=== PATIENT | female | born 1950 ===

== ENCOUNTER 2017-07-22 05:49 | Emergency (ER) | payer MEDICARE, OTHER ==
[~2017-07-22] VITALS: Ht 152.4 cm; Wt 61.8 kg
[2017-07-22 05:55] VITALS: Ht 152.4 cm; Wt 61.8 kg
--- NOTE | 2017-07-22 06:19 | RADRPT ---
PROCEDURE: CT Brain without contrast. CLINICAL INDICATION: Altered mental status TECHNIQUE: Axial images from the skull base through the vertex without IV contrast. Multiplanar r eformatted images were made. Images were reviewed on a PACS workstation. The CTDIvol is 45.01 mGy and the DLP is 720.23 mGycm. One or more of the following dose reduction techniques were used: auto mated exposure control, adjustment of the mA and/or kV according to patient size, or use of iterativ e reconstruction technique. DICOM images are available. COMPARISON: None. FINDINGS: The study is slightly limited by patient motion. There is mild cortical atrophy. Small 8 mm calcifie d lesion beneath the right frontal calvarium may represent a small meningioma. There is no definite evidence for acute territorial infarction or intracranial hemorrhage. No midline shift or extraaxial fluid collection is seen. Probable prior bilateral cataract surgery. The visualized paranasal sin uses and mastoids are clear.. IMPRESSION: No definite acute abnormality. Mild atrophy and possible small 8 mm calcified right frontal meningio ma. RPTAT: [facility] Physician Paul Date Time Electronically viewed and signed by Physician Paul on 07/22/2017 06:18 PEDRO LUIS/
--- NOTE | 2017-07-22 06:29 | RADRPT ---
PROCEDURE: XR Chest. CLINICAL INDICATION: Altered Mental Status TECHNIQUE: AP semiupright. COMPARISON: None. FINDINGS: The cardiomediastinal silhouette is normal in size. There are thoracic aortic atherosclerotic change s. The lungs are clear. No signs of pleural fluid or pneumothorax are seen. Degenerative changes of the left acromioclavicular joint are noted. IMPRESSION: 1. No evidence for active cardiopulmonary disease. 2. Thoracic aortic atherosclerosis. 3. Degenerative change of the left acromioclavicular joint. RPTAT: [facility] Physician Usha Date Time Electronically viewed and signed by Physician Usha on 07/22/2017 06:29 RR/
[2017-07-22 07:07] LABS: BASOPHILS % 0.3 % (0.0-2.0); EOSINOPHILS % 0.1 % (0.0-7.0); HEMATOCRIT 33.8 % (42.0-52.0); HEMOGLOBIN 11.2 g/dl (14.0-18.0); LYMPHOCYTES # 1.6 10^3/ul (0.8-2.9); LYMPHOCYTES % 15.5 % (15.0-51.0); MEAN CORPUSCULAR HEMOGLOBIN 29.2 pg (29.0-33.0); MEAN CORPUSCULAR HGB CONC 33.1 g/dl (32.0-37.0); MEAN CORPUSCULAR VOLUME 88.3 fl (82.0-101.0); MEAN PLATELET VOLUME 10.5 fl (7.4-10.4); MONOCYTE # 0.3 10^3/ul (0.3-0.9); MONOCYTES % 3.2 % (0.0-11.0); NEUTROPHIL # 8.3 10^3/ul (1.6-7.5); NEUTROPHILS % 80.6 % (39.0-77.0); PLATELET COUNT 239 10^3/UL (140-415); RED BLOOD COUNT 3.83 10^6/ul (4.70-6.10); RED CELL DISTRIBUTION WIDTH 13.2 % (11.5-14.5); WHITE BLOOD COUNT 10.3 10^3/ul (4.8-10.8)
[2017-07-22 07:11] LABS: ADD UMIC NO; UR ASCORBIC ACID 20 mg/dL (NEGATIVE); UR BILIRUBIN (Dip) NEGATIVE (NEGATIVE); UR BLOOD (Dip) NEGATIVE (NEGATIVE); UR CLARITY CLEAR (CLEAR); UR COLOR YELLOW (YELLOW); UR GLUCOSE (Dip) NEGATIVE (NEGATIVE); UR KETONES (Dip) NEGATIVE (NEGATIVE); UR LEUKOCYTE ESTERASE (Dip) NEGATIVE Leu/ul (NEGATIVE); UR NITRITE (Dip) NEGATIVE (NEGATIVE); UR SPECIFIC GRAVITY (Dip) 1.013 (1.003-1.030); UR TOTAL PROTEIN (Dip) NEGATIVE (NEGATIVE); UR UROBILINOGEN (Dip) NEGATIVE (NEGATIVE)
[2017-07-22 07:37] LABS: BENZODIAZEPINES Negative (NEGATIVE)
[2017-07-22 07:39] LABS: BARBITURATES Negative (NEGATIVE); CANNABINOIDS Negative (NEGATIVE); COCAINE Negative (NEGATIVE); OPIATES Negative (NEGATIVE)
[2017-07-22 07:41] LABS: ALANINE AMINOTRANSFERASE 36 IU/L (13-69); ALBUMIN 4.3 g/dl (3.3-4.9); ALBUMIN/GLOBULIN RATIO 1.48; ALKALINE PHOSPHATASE 98 IU/L (42-121); ANION GAP 13 (8-16); ASPARTATE AMINO TRANSFERASE 25 IU/L (15-46); BILIRUBIN,INDIRECT 0.5 mg/dl (0-1.1); BILIRUBIN,TOTAL 0.5 mg/dl (0.2-1.3); BLOOD UREA NITROGEN 11 mg/dl (7-20); CALCIUM 9.3 mg/dl (8.4-10.2); CARBON DIOXIDE 26 mmol/L (21-31); CHLORIDE 108 mmol/L (97-110); GLUCOSE 123 mg/dl (70-220); SODIUM 144 mmol/L (135-144); TOTAL PROTEIN 7.2 g/dl (6.1-8.1)
[2017-07-22] MEDS ORDERED: POTASSIUM CHLORIDE (SR) 20 MEQ TAB PO STA (08:09)
[2017-07-22 08:10] LABS: ACETAMINOPHEN < 10.0 ug/ml (10.0-30.0); POTASSIUM 2.9 mmol/L (3.5-5.1); SALICYLATE < 1.0 mg/dl (5.0-30.0)
[2017-07-22 08:13] LABS: ETHANOL < 10.0 mg/dl
--- NOTE | 2017-07-22 08:17 | PSY ---
Date/Time of Note Date/Time of Note DATE: 07/22/17 TIME: 07:59 Psychiatric Subjective Eval Consent Pt consented to telemedicine: Yes Subjective Evaluation Patient location: emergency Chief Complaint: LOST/ CONFUSED Reason for consult: i am scared History of present illness patient is a 67 yo female with PPH of schizophrenia and being in living in independent living who was brought to the ER due to being disorganized and suicidal Patient is very confused when i talk to her and disorganized, at times illogical, she tells me that she is scared that people are following her and trying to kill her, she states that she has been feeling very depressed, hopeless and helpless due to her paranoid, she cries during the interview, she has been feeling anxious for months and suffers from insomnia for days, with decrease appetite and no motivation to do anything, she states that she got lost , she denies any current manic or psychotic symptoms, no current si or hi, she denies any drug or alcohol abuse. Past psychiatric history no past suicidal attempt she used to be on gabapentin Hospitalization: yes Family History denies Medical history as per record Substance Abuse Substance use: No known substance abuse Social History Marital status: single Level of education: hs DPA/Conservatorship: No Occupation/Detention: retired Psychiatric Objective Eval Review of Systems: Review of Systems: Not Applicable Physical Examination: Physical Examination: Applicable Sleep: Insomnia Appetite: Decreased Energy: Decreased Interest: Decreased Mental Status Examination: Appearance: Disheveled Eye Contact: Fair Psychomotor Activity: Normal Behavior: Cooperative Speech: Clear, Disorganized AFFECT: Depressed Mood: Depressed Though Process: Loose Thought Content: Delusions Suicidal: No Homicidal: No On 72 hour hold: No Orientation: x2 Insight: Impared Judgement: Impared Attention Span: Intact Laboratory Results Laboratory Tests Test 07/22/17 05:30 07/22/17 06:53 White Blood Count 10.310^3/ul Red Blood Count 3.8310^6/ul Hemoglobin 11.2g/dl Hematocrit 33.8% Mean Corpuscular Volume 88.3fl Mean Corpuscular Hemoglobin 29.2pg Mean Corpuscular Hemoglobin Concent 33.1g/dl Red Cell Distribution Width 13.2% Platelet Count 67351^3/UL Mean Platelet Volume 10.5fl Neutrophils % 80.6% Lymphocytes % 15.5% Monocytes % 3.2% Eosinophils % 0.1% Basophils % 0.3% Nucleated Red Blood Cells % 0.0/100WBC Neutrophils # 8.310^3/ul Lymphocytes # 1.610^3/ul Monocytes # 0.310^3/ul Eosinophils # 0.010^3/ul Basophils # 0.010^3/ul Nucleated Red Blood Cells # 0.010^3/ul Urine Color YELLOW Urine Clarity CLEAR Urine pH 6.0 Urine Specific [place] 1.013 Urine Ketones NEGATIVEmg/dL Urine Nitrite NEGATIVEmg/dL Urine Bilirubin NEGATIVEmg/dL Urine Urobilinogen NEGATIVEmg/dL Urine Leukocyte Esterase NEGATIVELeu/ul Urine Hemoglobin NEGATIVEmg/dL Urine Glucose NEGATIVEmg/dL Urine Total Protein NEGATIVEmg/dl Urine Opiates Screen Negative Urine Barbiturates Negative Urine Amphetamines Screen Negative Urine Benzodiazepines Screen Negative Urine Cocaine Screen Negative Urine Cannabinoids Negative Assessment and Plan Assessment/Diagnosis [place] I: psychosis nos [place] II: deferred [place] III: as per record [place] IV: poor social support [place] V: gaf 25 Recommendation/Plan Follow-up/Disposition ~ Patient cannot be treated at a lower level of care today due to GRAVE DISABLITY including an inability to carry out basic transactions necessary for survival in these areas and as evidenced by these behaviors:~ - Unable to seek out Food, Unable to seek out Clothing, Unable to seek out Fpc, Severe Financial Incompetence, Severe Failure to Adjust in the Community, Severe Incompetence in Regards to Health Self-Management - Patient is labile,intrusive and socially inappropriate with personal boundaries - Confused, disoriented and/or grossly unable to distinguish reality from illusion~ ~-Requires near constant monitoring to prevent inadvertent danger to self and others -No family members willing and able to care for patient in the community with this mental state 5150 Recommendation: NICOLE Cannon MD Jul 22, 2017 08:12
--- NOTE | 2017-07-22 08:30 | ERD ---
ER Documentation Chief Complaint Chief Complaint LOST/ CONFUSED HPI Patient is a 67-year-old female with schizophrenia, diabetes, and hypertension who presents with insomnia. Please note the history and physical exam is limited secondary to the patient's scattered thoughts at this time. She says "my mind is sleeping". She feels dizzy. She denies pain. She says she could not sleep last night and was "dreaming of violence". She has suicidal ideation with no plan. She has no homicidal ideation. She knocked on a stranger's door in the middle of the night which prompted a call to 911. Upon review of old medical records this is the patient's first visit to the ER. She does not currently have a primary doctor. ROS All systems reviewed and are negative except as per history of present illness. PMhx/Soc History of Surgery: Yes (BI LAT EYE SX) Anesthesia Reaction: No Hx Neurological Disorder: No Hx Respiratory Disorders: No Hx Cardiac Disorders: Yes (HTN) Hx Miscellaneous Medical Probl: Yes (DM) Hx Alcohol Use: No Hx Substance Use: No Hx Tobacco Use: No Smoking Status: Never smoker FmHx Family History: No diabetes Physical Exam Vitals Vital Signs Date Time Temp Pulse Resp B/P Pulse Ox O2 Delivery O2 Flow Rate FiO2 07/22/17 08:18 Nasal Cannula 2 07/22/17 05:55 98.2 60 18 162/77 100 Physical Exam Const: No acute distress Head: Atraumatic Eyes: Normal Conjunctiva ENT: Normal External Ears, Nose and Mouth. Neck: Full range of motion..~ No meningismus. Resp: Clear to auscultation bilaterally Cardio: Regular rate and rhythm, no murmurs Abd: Soft, non tender, non distended. Normal bowel sounds Skin: No petechiae or rashes Back: No midline or flank tenderness Ext: No cyanosis, or edema Neur: Awake and alert Psych: Suicidal ideation without plan, no homicidal ideation Result Diagram: 07/22/1752907/22/17529 Results 24 hrs Laboratory Tests Test 07/22/17 05:30 07/22/17 06:53 White Blood Count 10.310^3/ul Red Blood Count 3.8310^6/ul Hemoglobin 11.2g/dl Hematocrit 33.8% Mean Corpuscular Volume 88.3fl Mean Corpuscular Hemoglobin 29.2pg Mean Corpuscular Hemoglobin Concent 33.1g/dl Red Cell Distribution Width 13.2% Platelet Count 61062^3/UL Mean Platelet Volume 10.5fl Neutrophils % 80.6% Lymphocytes % 15.5% Monocytes % 3.2% Eosinophils % 0.1% Basophils % 0.3% Nucleated Red Blood Cells % 0.0/100WBC Neutrophils # 8.310^3/ul Lymphocytes # 1.610^3/ul Monocytes # 0.310^3/ul Eosinophils # 0.010^3/ul Basophils # 0.010^3/ul Nucleated Red Blood Cells # 0.010^3/ul Sodium Level 144mmol/L Potassium Level 2.9mmol/L Chloride Level 108mmol/L Carbon Dioxide Level 26mmol/L Anion Gap 13 Blood Urea Nitrogen 11mg/dl Creatinine 0.60mg/dl Glucose Level 123mg/dl Calcium Level 9.3mg/dl Total Bilirubin 0.5mg/dl Direct Bilirubin 0.00mg/dl Indirect Bilirubin 0.5mg/dl Aspartate Amino Transf (AST/SGOT) 25IU/L Alanine Aminotransferase (ALT/SGPT) 36IU/L Alkaline Phosphatase 98IU/L Total Protein 7.2g/dl Albumin 4.3g/dl Globulin 2.90g/dl Albumin/Globulin Ratio 1.48 Salicylates Level < 1.0mg/dl Acetaminophen Level < 10.0ug/ml Ethyl Alcohol Level < 10.0mg/dl Urine Color YELLOW Urine Clarity CLEAR Urine pH 6.0 Urine Specific [place] 1.013 Urine Ketones NEGATIVEmg/dL Urine Nitrite NEGATIVEmg/dL Urine Bilirubin NEGATIVEmg/dL Urine Urobilinogen NEGATIVEmg/dL Urine Leukocyte Esterase NEGATIVELeu/ul Urine Hemoglobin NEGATIVEmg/dL Urine Glucose NEGATIVEmg/dL Urine Total Protein NEGATIVEmg/dl Urine Opiates Screen Negative Urine Barbiturates Negative Urine Amphetamines Screen Negative Urine Benzodiazepines Screen Negative Urine Cocaine Screen Negative Urine Cannabinoids Negative Current Medications Medications (Trade) Dose Ordered Sig/Viola Route PRN Reason Start Time Stop Time Status Last Admin Dose Admin Potassium Chloride (Klor-Con 20) 40 meq ONCE STAT PO 07/22/17 08:09 07/22/17 08:10 DC 07/22/17 08:23 Procedures/MDM Patient is a 67-year-old female who presents with grave disability. I believe there is underlying psychiatric cause of her symptoms at this time. The patient had a mild hypokalemia with a potassium of 2.9 and she was given potassium by mouth. She has a mild anemia with a hemoglobin 11.2 but does not require transfusion at this time. She was seen by Dr. Stringer from psychiatry who recommends a 5150 hold for grave disability. The patient will be transferred to a psychiatric facility once an accepting facility is found. Departure Diagnosis: Primary Impression: Grave disability Additional Impressions: Insomnia Insomnia type: unspecified Qualified Code: G47.00 - Insomnia, unspecified type Hypokalemia Condition: DEISI Head MD Jul 22, 2017 08:30
[2017-07-22] MEDS ORDERED: NICARDipine HCL 30 MG CAPSULE PO ONE (10:30)
[2017-07-22 15:09] VITALS: BP 153/67; PULSE 60; RESP 17; TEMP 98.2
== END 2017-07-22 15:13 ==
LOC: E/R 05:49 → EDSEX 05:49 → E/R 15:13
DX: F79 Unspecified intellectual disabilities (principal); G47.00 Insomnia, unspecified; E87.6 Hypokalemia; I10 Essential (primary) hypertension; E11.9 Type 2 diabetes mellitus without complications
CPT/HCPCS: 36415; 70450; 71010; 80053; 80306; 80307; 81003; 82962; 85025; 93005